=== PATIENT | female | born 1960 | race Caucasian/White ===

== ENCOUNTER 2017-11-05 16:00 | Emergency (ER) | payer OTHER ==
[~2017-11-05] VITALS: Ht 157.5 cm; Wt 67.6 kg
[2017-11-05 16:03] VITALS: Ht 157.5 cm; Wt 67.6 kg
[2017-11-05 16:58] VITALS: BP 130/76
== END 2017-11-05 16:58 | disposition home or self-care (01) ==
LOC: ED 16:00
DX: N39.0 Urinary tract infection, site not specified (principal)
CPT/HCPCS: J0696; J1885